=== PATIENT | male | born 1940 | race African-American/Black ===

== ENCOUNTER 2016-05-31 06:43 | Inpatient (IN) | payer MEDICARE ==
[~2016-05-31] VITALS: Ht 167.6 cm; Wt 62.6 kg
[~2016-05-31 06:43] MED LIST: AMLO-512 PO; ASPI-825 PO; CARV12 PO; CLON0.1T PO; DOCU-174 PO; FAMO20TA8 PO; FERR-48 PO; GLIP5TAB11 PO; LEVE500T19 PO; LISI10TA PO; METO-327 PO; NITR1OIN TP; PANT40TA25 PO; PHEN100C9 PO; SIMV-261 PO
[2016-05-31 06:56] LABS: GLUCOSE,POINT OF CARE 141 MG/DL (70-110)
[2016-05-31 07:08] LABS: BASOPHILS # (AUTO) 0.01 K/uL (0.00-0.20); BASOPHILS % (AUTO) 0.1 % (0.0-2.0); EOSINOPHILS # (AUTO) 0.01 K/uL (0.00-0.70); HEMOGLOBIN 16.3 g/dL (13.5-17.5); LYMPHOCYTES % (AUTO) 12.9 % (22.0-44.0); MEAN CORPUSCULAR HEMOGLOBIN 26.4 pg (26.0-34.0); MEAN CORPUSCULAR VOLUME 82 fL (80-100); MONOCYTES # (AUTO) 0.4 K/uL (0.1-1.0); MONOCYTES % (AUTO) 4.9 % (2.0-9.0); NEUTROPHILS # (AUTO) 6.5 K/uL (1.8-7.7); NEUTROPHILS % (AUTO) 82.1 % (40.0-70.0); PLATELET COUNT (AUTO) 199 K/uL (150-450); RED BLOOD CELL COUNT(AUTO) 6.19 MIL/uL (4.50-5.90)
[2016-05-31 07:17] LABS: INR 1.3 (0.9-1.1); PROTHROMBIN TIME 13.8 SEC (9.4-11.6)
[2016-05-31 07:21] LABS: TROPONIN I 0.18 ng/mL (0.00-0.05)
[2016-05-31 07:32] LABS: ANION GAP 22 mmol/L (8-16); CALCIUM, TOTAL 10.1 mg/dL (8.8-10.5); CARBON DIOXIDE 16 mmol/L (22-29); CHLORIDE 94 mmol/L (98-107); CREATININE 2.05 mg/dL (0.60-1.30); GLOMERULAR FILTR. RATE CALC 38 mL/min (>60); POTASSIUM 3.4 mmol/L (3.5-5.1); SODIUM SERUM 132 mmol/L (136-145); UREA NITROGEN, BLOOD 16 mg/dL (7-18)
[2016-05-31] MEDS ORDERED: ACETAMINOPHEN 650 MG RECTAL SUPPOSITORY PR ONE (08:00)
[2016-05-31 08:06] LABS: ALANINE AMINOTRANSFERASE 33 U/L (12-78); ALBUMIN 4.1 g/dL (3.4-5.0); ASPARTATE AMINOTRANSFERASE 67 U/L (15-37); BILIRUBIN,TOTAL 1.1 mg/dL (0.1-1.0); CREATINE KINASE MB 1.5 ng/mL (0-5); CREATINE KINASE, TOTAL 2760 U/L (39-308); TOTAL PROTEIN, SERUM 9.6 g/dL (6.4-8.2)
[2016-05-31 08:18] LABS: APPEARANCE,URINE CLEAR (CLEAR); GLUCOSE, URINE (UA) NEGATIVE (NEGATIVE); KETONES,URINE NEGATIVE (NEGATIVE); LEUKOCYTE ESTERASE ,URINE NEGATIVE (NEGATIVE); OCCULT BLOOD,URINE LARGE (NEGATIVE); PROTEIN,URINE SEE CONFIRM (NEGATIVE)
[2016-05-31 08:19] LABS: ADD UA MICROSCOPIC YES
[2016-05-31 08:23] LABS: SULFOSALICYLIC ACID,URINE 1+ (Negative)
[2016-05-31 08:27] LABS: URINALYSIS COMMENT Few Sperm seen.
[2016-05-31 08:28] LABS: RBC,URINE 26-50 /HPF (0-2); WBC,URINE None Seen /HPF (0-5)
[2016-05-31 08:29] LABS: SQUAMOUS EPITHELIAL CELL,UR Few /LPF (None Seen)
[2016-05-31] MEDS ORDERED: AZITHROMYCIN 500 MG/NS 250 ML IV ONE (08:45)
[2016-05-31] MEDS ORDERED: CefTRIAXone 1 GM/DEXTROSE 50 ML IV ONE (08:45)
[2016-05-31] MEDS ORDERED: ASPIRIN 300 MG RECTAL SUPPOSITORY PR ONE (08:45)
[2016-05-31] MEDS ORDERED: FUROSEMIDE 40 MG/4 ML VIAL IVP ONE (08:45)
[2016-05-31 09:46] LABS: LACTIC ACID 2.9 mmol/L (0.4-2.0)
[2016-05-31] MEDS ORDERED: LevETIRAcetam 1,000 MG in DEXTROSE 5%-WATER 100 ML IV ONE (10:00)
[2016-05-31 10:59] LABS: REFLEX LACTIC ACID? YES YES
[2016-05-31] MEDS ORDERED: VANCOMYCIN HCL 1 GM/D5% WATER 200 ML IV ONE (11:15)
[2016-05-31] MEDS ORDERED: ACETAMINOPHEN 650 MG/ISO-OSM 65 ML IV ONE (11:15)
[2016-05-31] MEDS ORDERED: LORazepam 2 MG/ML VIAL IVP ONE ×2 (11:15→15:00)
[2016-05-31] MEDS ORDERED: 0.9% SODIUM CHLORIDE 10 ML SYRINGE IVP PRN (13:00)
[2016-05-31] MEDS ORDERED: MAGNESIUM HYDROXIDE SUSPENSION 30 ML UDCUP PO PRN (13:45)
[2016-05-31] MEDS ORDERED: ACETAMINOPHEN 325 MG TABLET PO PRN (13:45)
[2016-05-31] MEDS ORDERED: SODIUM CHLORIDE 0.9% 1,000 ML IV ONE (13:45)
[2016-05-31] MEDS ORDERED: ALBUTEROL SULFATE 2.5 MG/0.5 ML NEB SOLUTION NEB PRN (13:45)
[2016-05-31] MEDS ORDERED: SODIUM CHLORIDE 0.9% 100 ML ONE (14:20)
[2016-05-31] MEDS ORDERED: IOVERSOL 350 MG/ML 100 ML VIAL ONE (14:20)
[2016-05-31] MEDS ORDERED: VANCOMYCIN HCL 1 GM/D5% WATER 200 ML IV PRN (14:30)
[2016-05-31] MEDS: PANTOPRAZOLE SODIUM 40 MG/VIAL IVP SCH (14:45)
[2016-05-31] MEDS ORDERED: PIPERACILLIN SODIUM/TAZOBACTAM 2.25 GM in DEXTROSE 5%-WATER 50 ML IV ONE (15:00)
[2016-05-31] MEDS: HEPARIN SODIUM,PORCINE 5,000 UNITS/ML VIAL SQ SCH (16:48)
[2016-05-31] MEDS: IPRATROPIUM BROMIDE 0.5 MG/2.5 ML NEB SOLUTION NEB SCH ×2 (18:23→22:47)
[2016-05-31] MEDS: ALBUTEROL SULFATE 2.5 MG/0.5 ML NEB SOLUTION NEB SCH ×2 (18:23→22:47)
[2016-05-31] MEDS ORDERED: LORazepam 2 MG/ML VIAL IVP PRN (21:00)
[2016-05-31 21:26] VITALS: BP 131/93
[2016-05-31] MEDS: DOCUSATE SODIUM 100 MG CAPSULE PO SCH (21:27)
[2016-05-31] MEDS: LevETIRAcetam 500 MG in DEXTROSE 5%-WATER 100 ML IV SCH (22:33)
[2016-05-31 23:53] VITALS: BP 129/90
[2016-06-01] MEDS: PIPERACILLIN SODIUM/TAZOBACTAM 2.25 GM in DEXTROSE 5%-WATER 50 ML IV SCH ×5 (00:30→23:27)
[2016-06-01] MEDS: HEPARIN SODIUM,PORCINE 5,000 UNITS/ML VIAL SQ SCH ×4 (00:30→23:28)
[2016-06-01 04:16] VITALS: BP 106/73
[2016-06-01 07:20] LABS: BASOPHILS % (AUTO) 0.1 % (0.0-2.0); EOSINOPHILS % (AUTO) 0.1 % (1.0-6.0); HEMOGLOBIN 16.9 g/dL (13.5-17.5); LYMPHOCYTES # (AUTO) 0.8 K/uL (1.0-4.8); LYMPHOCYTES % (AUTO) 12.2 % (22.0-44.0); MEAN CORPUSCULAR HEMOGLOBIN 26.4 pg (26.0-34.0); MEAN CORPUSCULAR HGB CONC 31.9 G/dL (31.0-37.0); MEAN CORPUSCULAR VOLUME 83 fL (80-100); MONOCYTES # (AUTO) 0.9 K/uL (0.1-1.0); MONOCYTES % (AUTO) 13.3 % (2.0-9.0); NEUTROPHILS # (AUTO) 4.9 K/uL (1.8-7.7); NEUTROPHILS % (AUTO) 74.3 % (40.0-70.0); PLATELET COUNT (AUTO) 157 K/uL (150-450); RED BLOOD CELL COUNT(AUTO) 6.39 MIL/uL (4.50-5.90); RED CELL DISTRIBUTION WIDTH 15.2 % (11.5-14.5); WHITE BLOOD COUNT (AUTO) 6.6 K/uL (4.5-11.0)
[2016-06-01 07:38] LABS: ALBUMIN 3.1 g/dL (3.4-5.0); BILIRUBIN,TOTAL 0.9 mg/dL (0.1-1.0); CALCIUM, TOTAL 8.9 mg/dL (8.8-10.5); CREATININE 2.2 mg/dL (0.60-1.30); TOTAL PROTEIN, SERUM 7.8 g/dL (6.4-8.2)
[2016-06-01 07:40] VITALS: BP 136/78
[2016-06-01 07:42] LABS: POTASSIUM 2.8 mmol/L (3.5-5.1)
[2016-06-01] MEDS: PANTOPRAZOLE SODIUM 40 MG/VIAL IVP SCH (08:18)
[2016-06-01] MEDS: DOCUSATE SODIUM 100 MG CAPSULE PO SCH ×2 (08:18→21:00)
[2016-06-01] MEDS: SIMVASTATIN 20 MG TABLET PO SCH (08:18)
[2016-06-01] MEDS: ASPIRIN 81 MG CHEWABLE TABLET PO SCH (08:18)
[2016-06-01] MEDS ORDERED: VANCOMYCIN HCL 500 MG in DEXTROSE 5%-WATER 100 ML IV ONE (09:00)
[2016-06-01] MEDS ORDERED: POTASSIUM CHLORIDE 20 MEQ ER TABLET PO ONE (10:30)
[2016-06-01 11:15] VITALS: BP 111/74
[2016-06-01] MEDS: LevETIRAcetam 500 MG in DEXTROSE 5%-WATER 100 ML IV SCH ×2 (11:45→22:56)
[2016-06-01 15:44] VITALS: BP 127/84
[2016-06-01 19:54] VITALS: BP 102/78
[2016-06-02] VITALS (7 sets, daily range): BP systolic 116–142; BP diastolic 59–91
[2016-06-02] MEDS: PIPERACILLIN SODIUM/TAZOBACTAM 2.25 GM in DEXTROSE 5%-WATER 50 ML IV SCH ×2 (06:28→12:19)
[2016-06-02 07:01] LABS: BASOPHILS % (AUTO) 0.6 % (0.0-2.0); EOSINOPHILS % (AUTO) 0.9 % (1.0-6.0); HEMATOCRIT 51.7 % (41-53); HEMOGLOBIN 16.1 g/dL (13.5-17.5); LYMPHOCYTES # (AUTO) 1.4 K/uL (1.0-4.8); LYMPHOCYTES % (AUTO) 27.8 % (22.0-44.0); MEAN CORPUSCULAR HEMOGLOBIN 26.2 pg (26.0-34.0); MEAN CORPUSCULAR HGB CONC 31.2 G/dL (31.0-37.0); MEAN CORPUSCULAR VOLUME 84 fL (80-100); MONOCYTES # (AUTO) 0.9 K/uL (0.1-1.0); MONOCYTES % (AUTO) 17.3 % (2.0-9.0); NEUTROPHILS # (AUTO) 2.7 K/uL (1.8-7.7); NEUTROPHILS % (AUTO) 53.4 % (40.0-70.0); PLATELET COUNT (AUTO) 147 K/uL (150-450); RED BLOOD CELL COUNT(AUTO) 6.17 MIL/uL (4.50-5.90); RED CELL DISTRIBUTION WIDTH 15.5 % (11.5-14.5); WHITE BLOOD COUNT (AUTO) 5.1 K/uL (4.5-11.0)
[2016-06-02 07:14] LABS: CALCIUM, TOTAL 8.8 mg/dL (8.8-10.5); CREATININE 1.94 mg/dL (0.60-1.30); POTASSIUM 3.4 mmol/L (3.5-5.1)
[2016-06-02] MEDS ORDERED: VANCOMYCIN HCL 500 MG in DEXTROSE 5%-WATER 100 ML IV SCH (08:00)
[2016-06-02] MEDS: HEPARIN SODIUM,PORCINE 5,000 UNITS/ML VIAL SQ SCH ×2 (09:39→16:17)
[2016-06-02] MEDS: DOCUSATE SODIUM 100 MG CAPSULE PO SCH ×2 (09:41→20:35)
[2016-06-02] MEDS: PANTOPRAZOLE SODIUM 40 MG/VIAL IVP SCH (09:41)
[2016-06-02] MEDS: SIMVASTATIN 20 MG TABLET PO SCH (09:41)
[2016-06-02] MEDS: ASPIRIN 81 MG CHEWABLE TABLET PO SCH (09:42)
[2016-06-02] MEDS: LevETIRAcetam 500 MG in DEXTROSE 5%-WATER 100 ML IV SCH (11:25)
[2016-06-02] MEDS ORDERED: POTASSIUM CHLORIDE 20 MEQ ER TABLET PO ONE (12:30)
[2016-06-02] MEDS ORDERED: VANCOMYCIN HCL 500 MG in DEXTROSE 5%-WATER 100 ML IV ONE (13:00)
[2016-06-02] MEDS: CefTRIAXone 1 GM/DEXTROSE 50 ML IV SCH (17:49)
[2016-06-02] MEDS: LevETIRAcetam 500 MG TABLET PO SCH (20:35)
[2016-06-03] VITALS: BP 126/90
[2016-06-03] MEDS: HEPARIN SODIUM,PORCINE 5,000 UNITS/ML VIAL SQ SCH ×4 (00:10→23:51)
[2016-06-03 04:17] VITALS: BP 129/85
[2016-06-03 07:29] VITALS: BP 143/70
[2016-06-03] MEDS ORDERED: VANCOMYCIN HCL 1 GM/D5% WATER 200 ML IV SCH (08:00)
[2016-06-03] MEDS: ASPIRIN 81 MG CHEWABLE TABLET PO SCH (08:37)
[2016-06-03] MEDS: DOCUSATE SODIUM 100 MG CAPSULE PO SCH ×2 (08:37→20:15)
[2016-06-03] MEDS: LevETIRAcetam 500 MG TABLET PO SCH ×2 (08:37→20:15)
[2016-06-03] MEDS: SIMVASTATIN 20 MG TABLET PO SCH (08:39)
[2016-06-03 11:20] VITALS: BP 142/88
[2016-06-03 15:00] VITALS: BP 136/92
[2016-06-03] MEDS ORDERED: POTASSIUM CHLORIDE 20 MEQ ER TABLET PO ONE (16:15)
[2016-06-03] MEDS ORDERED: VANCOMYCIN HCL 1 GM/D5% WATER 200 ML IV PRN (16:15)
[2016-06-03] MEDS: CefTRIAXone 1 GM/DEXTROSE 50 ML IV SCH (16:49)
[2016-06-03] MEDS ORDERED: VANCOMYCIN HCL 1 GM/D5% WATER 200 ML IV ONE (17:00)
[2016-06-03 19:51] VITALS: BP 134/91
[2016-06-04] VITALS (7 sets, daily range): BP systolic 131–158; BP diastolic 74–98
[2016-06-04 06:16] LABS: BASOPHILS # (AUTO) 0.07 K/uL (0.00-0.20); EOSINOPHILS # (AUTO) 0.42 K/uL (0.00-0.70); EOSINOPHILS % (AUTO) 6.52 % (1.0-6.0); HEMOGLOBIN 17.4 g/dL (13.5-17.5); LYMPHOCYTES # (AUTO) 2.6 K/uL (1.0-4.8); LYMPHOCYTES % (AUTO) 40.6 % (22.0-44.0); MEAN CORPUSCULAR HEMOGLOBIN 26.4 pg (26.0-34.0); MEAN CORPUSCULAR HGB CONC 32.8 G/dL (31.0-37.0); MEAN CORPUSCULAR VOLUME 80 fL (80-100); MONOCYTES % (AUTO) 15.8 % (2.0-9.0); NEUTROPHILS # (AUTO) 2.3 K/uL (1.8-7.7); NEUTROPHILS % (AUTO) 36.1 % (40.0-70.0); PLATELET COUNT (AUTO) 150 K/uL (150-450); RED BLOOD CELL COUNT(AUTO) 6.59 MIL/uL (4.50-5.90); RED CELL DISTRIBUTION WIDTH 17.5 % (11.5-14.5); WHITE BLOOD COUNT (AUTO) 6.5 K/uL (4.5-11.0)
[2016-06-04] MEDS: HEPARIN SODIUM,PORCINE 5,000 UNITS/ML VIAL SQ SCH ×2 (08:19→17:40)
[2016-06-04] MEDS: SIMVASTATIN 20 MG TABLET PO SCH (08:19)
[2016-06-04] MEDS: ASPIRIN 81 MG CHEWABLE TABLET PO SCH (08:19)
[2016-06-04] MEDS: LevETIRAcetam 500 MG TABLET PO SCH ×2 (08:19→19:59)
[2016-06-04] MEDS: DOCUSATE SODIUM 100 MG CAPSULE PO SCH ×2 (08:19→19:59)
[2016-06-04 08:41] LABS: CALCIUM, TOTAL 9.1 mg/dL (8.8-10.5); CREATININE 1.51 mg/dL (0.60-1.30); POTASSIUM 3.5 mmol/L (3.5-5.1)
[2016-06-04] MEDS ORDERED: VANCOMYCIN HCL 1 GM/D5% WATER 200 ML IV ONE (10:00)
[2016-06-04] MEDS: VANCOMYCIN HCL 750 MG in DEXTROSE 5%-WATER 150 ML IV SCH (17:37)
[2016-06-04] MEDS: CefTRIAXone 1 GM/DEXTROSE 50 ML IV SCH (17:37)
[2016-06-05 04:00] VITALS: BP 154/83
[2016-06-05] MEDS: VANCOMYCIN HCL 750 MG in DEXTROSE 5%-WATER 150 ML IV SCH (05:31)
[2016-06-05 06:18] LABS: BASOPHILS % (AUTO) 0.6 % (0.0-2.0); EOSINOPHILS % (AUTO) 7.1 % (1.0-6.0); HEMATOCRIT 52.8 % (41-53); HEMOGLOBIN 16.4 g/dL (13.5-17.5); LYMPHOCYTES # (AUTO) 2.7 K/uL (1.0-4.8); LYMPHOCYTES % (AUTO) 40.5 % (22.0-44.0); MEAN CORPUSCULAR VOLUME 84 fL (80-100); MONOCYTES # (AUTO) 0.9 K/uL (0.1-1.0); NEUTROPHILS # (AUTO) 2.5 K/uL (1.8-7.7); NEUTROPHILS % (AUTO) 38.8 % (40.0-70.0); PLATELET COUNT (AUTO) 150 K/uL (150-450); RED CELL DISTRIBUTION WIDTH 15.3 % (11.5-14.5); WHITE BLOOD COUNT (AUTO) 6.6 K/uL (4.5-11.0)
[2016-06-05 06:38] LABS: ANION GAP 8 mmol/L (8-16); CALCIUM, TOTAL 9.3 mg/dL (8.8-10.5); CARBON DIOXIDE 24 mmol/L (22-29); CHLORIDE 101 mmol/L (98-107); CREATININE 1.34 mg/dL (0.60-1.30); GLOMERULAR FILTR. RATE CALC > 60 mL/min (>60); POTASSIUM 3.7 mmol/L (3.5-5.1); SODIUM SERUM 133 mmol/L (136-145); UREA NITROGEN, BLOOD 12 mg/dL (7-18)
[2016-06-05 07:39] VITALS: BP 153/94
[2016-06-05] MEDS: DOCUSATE SODIUM 100 MG CAPSULE PO SCH (08:29)
[2016-06-05] MEDS: HEPARIN SODIUM,PORCINE 5,000 UNITS/ML VIAL SQ SCH ×2 (08:29)
[2016-06-05] MEDS: LevETIRAcetam 500 MG TABLET PO SCH (08:29)
[2016-06-05] MEDS: SIMVASTATIN 20 MG TABLET PO SCH (08:29)
[2016-06-05] MEDS: ASPIRIN 81 MG CHEWABLE TABLET PO SCH (08:29)
[2016-06-05 12:00] VITALS: BP 135/95
== END 2016-06-05 15:00 | disposition left against medical advice (07) | DRG 872 ==
LOC: EMS 06:45 → 5N 17:49 → 6N 06-02 16:35
PROVIDERS: ADMIT Internal Medicine; ATTEND Internal Medicine
DX: A41.1 Sepsis due to other specified staphylococcus (principal); N17.9 Acute kidney failure, unspecified; M62.82 Rhabdomyolysis; I13.0 Hypertensive heart and chronic kidney disease with heart failure and stage 1 through stage 4 chronic kidney disease, or unspecified chronic kidney disease; I48.92 Unspecified atrial flutter; R64 Cachexia; R65.20 Severe sepsis without septic shock; E78.00 Pure hypercholesterolemia, unspecified; G40.909 Epilepsy, unspecified, not intractable, without status epilepticus; I25.10 Atherosclerotic heart disease of native coronary artery without angina pectoris; I35.0 Nonrheumatic aortic (valve) stenosis; I50.9 Heart failure, unspecified; I48.91 Unspecified atrial fibrillation; Z60.2 Problems related to living alone; E11.22 Type 2 diabetes mellitus with diabetic chronic kidney disease; N18.3 Chronic kidney disease, stage 3 (moderate); Z78.1 Physical restraint status; Z59.0 Homelessness; Z91.14 Patient's other noncompliance with medication regimen; Z95.1 Presence of aortocoronary bypass graft; Z95.2 Presence of prosthetic heart valve; Z79.899 Other long term (current) drug therapy; Z79.82 Long term (current) use of aspirin; Z79.84 Long term (current) use of oral hypoglycemic drugs; Z86.2 Personal history of diseases of the blood and blood-forming organs and certain disorders involving the immune mechanism; I25.2 Old myocardial infarction; Z87.01 Personal history of pneumonia (recurrent); Z86.79 Personal history of other diseases of the circulatory system; Z68.22 Body mass index [BMI] 22.0-22.9, adult; Z87.891 Personal history of nicotine dependence
CPT/HCPCS: 51702; 70496; 70551; 82962; 83605; 87040; 93005; 93306; 94640; 96361; 96365; 96366; 96367; 96368; 96375; 97161; 99291; C9113; G0480; G0482; J0131; J0696; J0712; J1644; J1940; J2060; J2543; J3370; J7050; J7060

== ENCOUNTER 2017-04-06 12:25 | Inpatient (IN) | payer MEDICARE ==
[~2017-04-06] VITALS: Ht 165.1 cm; Wt 61.8 kg
[~2017-04-06 12:25] MED LIST changes: -DOCU-174 PO; +DOCU100C33 PO; -METO-327 PO; +METO-416 PO
[2017-04-06] MEDS ORDERED: SODIUM CHLORIDE 0.9% 1,000 ML IV ONE (12:45)
[2017-04-06 13:18] LABS: BASOPHILS % (AUTO) 1.2 % (0.0-2.0); EOSINOPHILS % (AUTO) 3.5 % (1.0-6.0); HEMOGLOBIN 15.4 g/dL (13.5-17.5); LYMPHOCYTES # (AUTO) 1.1 K/uL (1.0-4.8); LYMPHOCYTES % (AUTO) 13.6 % (22.0-44.0); MEAN CORPUSCULAR HGB CONC 32.1 G/dL (31.0-37.0); MEAN CORPUSCULAR VOLUME 84 fL (80-100); MONOCYTES # (AUTO) 0.4 K/uL (0.1-1.0); MONOCYTES % (AUTO) 5.3 % (2.0-9.0); NEUTROPHILS % (AUTO) 76.4 % (40.0-70.0); PLATELET COUNT (AUTO) 209 K/uL (150-450); RED BLOOD CELL COUNT(AUTO) 5.69 MIL/uL (4.50-5.90); RED CELL DISTRIBUTION WIDTH 14.5 % (11.5-14.5)
[2017-04-06 13:28] LABS: INR 1.1 (0.9-1.1); PROTHROMBIN TIME 11.3 SEC (9.4-11.6)
[2017-04-06 13:36] LABS: TROPONIN I 0.05 ng/mL (0.00-0.05)
[2017-04-06 13:40] LABS: ALANINE AMINOTRANSFERASE 17 U/L (12-78); ALBUMIN 3.5 g/dL (3.4-5.0); ALKALINE PHOSPHATASE 128 U/L (46-116); ANION GAP 20 mmol/L (8-16); ASPARTATE AMINOTRANSFERASE 21 U/L (15-37); BILIRUBIN,TOTAL 0.4 mg/dL (0.1-1.0); CALCIUM, TOTAL 9.4 mg/dL (8.8-10.5); CARBON DIOXIDE 18 mmol/L (22-29); CHLORIDE 100 mmol/L (98-107); CREATININE 2.01 mg/dL (0.60-1.30); GLOMERULAR FILTR. RATE CALC 39 mL/min (>60); GLUCOSE,RANDOM 125 mg/dL (70-110); SODIUM SERUM 138 mmol/L (136-145); TOTAL PROTEIN, SERUM 8.1 g/dL (6.4-8.2); UREA NITROGEN, BLOOD 18 mg/dL (7-18)
[2017-04-06 13:47] LABS: POTASSIUM 2.8 mmol/L (3.5-5.1)
[2017-04-06] MEDS ORDERED: POTASSIUM CHL 10 MEQ/WATER 50 ML IV ONE (14:15)
[2017-04-06] MEDS ORDERED: LABETALOL HCL 5 MG/ML 20 ML VIAL IVP ONE ×2 (14:15→16:45)
[2017-04-06 14:43] LABS: B-TYPE NATRIURETIC PEPTIDE 350 pg/mL (0-100)
[2017-04-06] MEDS ORDERED: LACTULOSE 20 GM/30 ML SOLUTION UDCUP PO ONE (14:45)
[2017-04-06] MEDS ORDERED: PHENYTOIN SODIUM 1,000 MG in SODIUM CHLORIDE 0.9% 150 ML IV ONE (14:45)
[2017-04-06 14:52] LABS: PHENYTOIN (DILANTIN) < 0.5 mcg/mL (10.0-20.0)
[2017-04-06] MEDS ORDERED: LORazepam 2 MG/ML VIAL IVP ONE (15:00)
[2017-04-06] MEDS ORDERED: ALBUTEROL SULFATE 2.5 MG/0.5 ML NEB SOLUTION NEB PRN ×2 (15:30→21:15)
[2017-04-06] MEDS ORDERED: ACETAMINOPHEN 325 MG TABLET PO PRN (15:30)
[2017-04-06] MEDS ORDERED: BISACODYL 10 MG RECTAL RECTAL SUPPOSITORY PR PRN (15:30)
[2017-04-06] MEDS ORDERED: ONDANSETRON HCL 4 MG/2 ML VIAL IVP PRN (15:30)
[2017-04-06] MEDS ORDERED: DEXTROSE 5%-0.45% SODIUM CHL 1,000 ML IV ONE (15:45)
[2017-04-06] MEDS ORDERED: DEXTROSE 50%-WATER 25 GM/50 ML SYRINGE IVP PRN (15:45)
[2017-04-06 16:57] LABS: APPEARANCE,URINE TURBID (CLEAR); BILIRUBIN,URINE NEGATIVE (NEGATIVE); GLUCOSE, URINE (UA) NEGATIVE (NEGATIVE); KETONES,URINE NEGATIVE (NEGATIVE); LEUKOCYTE ESTERASE ,URINE NEGATIVE (NEGATIVE); NITRATE,URINE NEGATIVE (NEGATIVE); OCCULT BLOOD,URINE MODERATE (NEGATIVE); PROTEIN,URINE SEE CONFIRM (NEGATIVE); UROBILINOGEN,URINE 0.2 mg/dL (<=1.0)
[2017-04-06 17:01] LABS: AMPHET/METH SCREEN,URINE NEGATIVE (NEGATIVE); BARBITURATE SCREEN, URINE NEGATIVE (NEGATIVE); BENZODIAZEPINES SCREEN,URINE POSITIVE (NEGATIVE); CANNABINOID SCREEN,URINE POSITIVE (NEGATIVE); COCAINE SCREEN,URINE NEGATIVE (NEGATIVE); METHADONE SCREEN, URINE NEGATIVE (NEGATIVE); OPIATE SCREEN,URINE NEGATIVE (NEGATIVE)
[2017-04-06 17:05] LABS: PHENCYCLIDINE SCREEN,URINE NEGATIVE (NEGATIVE); SULFOSALICYLIC ACID,URINE 1+ (Negative)
[2017-04-06 17:08] LABS: BACTERIA,URINE None Seen /HPF (None Seen); SQUAMOUS EPITHELIAL CELL,UR Few /LPF (None Seen); WBC,URINE 0-2 /HPF (0-5)
[2017-04-06] MEDS: LevETIRAcetam 500 MG in DEXTROSE 5%-WATER 100 ML IV SCH (18:16)
[2017-04-06] MEDS: CloNIDine HCL 0.1 MG TABLET PO PRN (18:22)
[2017-04-06 20:00] VITALS: BP 162/98
[2017-04-06] MEDS ORDERED: CARVEDILOL 12.5 MG TABLET PO SCH (21:00)
[2017-04-06] MEDS ORDERED: SODIUM CHLORIDE 0.9% 250 ML IV ONE (21:25)
[2017-04-06] MEDS: POTASSIUM CHL 10 MEQ/WATER 50 ML IV SCH ×3 (21:30→23:28)
[2017-04-06] MEDS: CloNIDine HCL 0.1 MG TABLET PO SCH (21:31)
[2017-04-06] MEDS: HEPARIN SODIUM,PORCINE 5,000 UNITS/ML VIAL SQ SCH (21:31)
[2017-04-06] MEDS: DOCUSATE SODIUM 100 MG CAPSULE PO SCH (21:32)
[2017-04-06 22:30] VITALS: BP 163/92
[2017-04-06] MEDS: INSULIN ASPART 100 UNITS/ML SQ PRN (22:32)
[2017-04-06 23:30] VITALS: BP 120/80
[2017-04-07] VITALS: BP 120/78
[2017-04-07] MEDS: POTASSIUM CHL 10 MEQ/WATER 50 ML IV SCH (00:44)
[2017-04-07 04:00] VITALS: BP 154/68
[2017-04-07] MEDS: LevETIRAcetam 500 MG in DEXTROSE 5%-WATER 100 ML IV SCH ×2 (04:04→16:55)
[2017-04-07 05:17] LABS: GLUCOSE,POINT OF CARE 197 MG/DL (70-110)
[2017-04-07 05:48] LABS: CALCIUM, TOTAL 9.2 mg/dL (8.8-10.5); CREATININE 1.96 mg/dL (0.60-1.30); POTASSIUM 3.6 mmol/L (3.5-5.1)
[2017-04-07] MEDS ORDERED: PNEUMOCOCCAL VACCINE POLYVALENT 0.5 ML VIAL [PPSV23] IM ONE (06:00)
[2017-04-07 06:08] LABS: EOSINOPHILS % (AUTO) 0 % (1.0-6.0); HEMATOCRIT 47.6 % (41-53); HEMOGLOBIN 15.5 g/dL (13.5-17.5); LYMPHOCYTES # (AUTO) 1.4 K/uL (1.0-4.8); LYMPHOCYTES % (AUTO) 8.2 % (22.0-44.0); MEAN CORPUSCULAR HEMOGLOBIN 27.1 pg (26.0-34.0); MEAN CORPUSCULAR HGB CONC 32.6 G/dL (31.0-37.0); MEAN CORPUSCULAR VOLUME 83 fL (80-100); MONOCYTES # (AUTO) 0.6 K/uL (0.1-1.0); MONOCYTES % (AUTO) 3.6 % (2.0-9.0); NEUTROPHILS # (AUTO) 14.9 K/uL (1.8-7.7); PLATELET COUNT (AUTO) 208 K/uL (150-450); RED BLOOD CELL COUNT(AUTO) 5.73 MIL/uL (4.50-5.90); RED CELL DISTRIBUTION WIDTH 14.9 % (11.5-14.5)
[2017-04-07 06:28] LABS: NEUTROPHILS % (AUTO) 88.2 % (40.0-70.0)
[2017-04-07 08:00] VITALS: BP 169/75
[2017-04-07] MEDS: PANTOPRAZOLE SODIUM 40 MG/VIAL IVP SCH (09:03)
[2017-04-07] MEDS: METOPROLOL SUCCINATE 100 MG ER TABLET PO SCH (09:03)
[2017-04-07] MEDS: AmLODIPine BESYLATE 10 MG TABLET PO SCH (09:04)
[2017-04-07] MEDS: CloNIDine HCL 0.1 MG TABLET PO SCH ×3 (09:04→21:42)
[2017-04-07] MEDS: LISINOPRIL 10 MG TABLET PO SCH (09:04)
[2017-04-07] MEDS: HEPARIN SODIUM,PORCINE 5,000 UNITS/ML VIAL SQ SCH ×2 (09:04→21:42)
[2017-04-07] MEDS: DOCUSATE SODIUM 100 MG CAPSULE PO SCH ×2 (09:05→21:42)
[2017-04-07 09:12] LABS: GLUCOSE,POINT OF CARE 127 MG/DL (70-110)
[2017-04-07] MEDS: LORazepam 2 MG/ML VIAL IVP PRN (11:07)
[2017-04-07 12:00] VITALS: BP 145/80
[2017-04-07] MEDS: DEXTROSE 5%-0.45% SODIUM CHL 1,000 ML IV SCH (13:11)
[2017-04-07 16:00] VITALS: BP 148/92
[2017-04-07] MEDS: INSULIN ASPART 100 UNITS/ML SQ PRN (17:33)
[2017-04-07 19:39] VITALS: BP 149/79
[2017-04-07 23:13] LABS: GLUCOSE,POINT OF CARE 162 MG/DL (70-110)
[2017-04-08] VITALS (9 sets, daily range): BP systolic 147–175; BP diastolic 59–115
[2017-04-08] MEDS: DEXTROSE 5%-0.45% SODIUM CHL 1,000 ML IV SCH ×2 (00:54→16:54)
[2017-04-08 01:17] LABS: GLUCOSE,POINT OF CARE 119 MG/DL (70-110)
[2017-04-08] MEDS: LevETIRAcetam 500 MG in DEXTROSE 5%-WATER 100 ML IV SCH ×2 (03:48→15:03)
[2017-04-08 06:59] LABS: EOSINOPHILS % (AUTO) 0.6 % (1.0-6.0); HEMATOCRIT 47.1 % (41-53); HEMOGLOBIN 15.4 g/dL (13.5-17.5); LYMPHOCYTES % (AUTO) 13.4 % (22.0-44.0); MEAN CORPUSCULAR HEMOGLOBIN 27.2 pg (26.0-34.0); MEAN CORPUSCULAR HGB CONC 32.7 G/dL (31.0-37.0); MEAN CORPUSCULAR VOLUME 83 fL (80-100); MONOCYTES # (AUTO) 1.6 K/uL (0.1-1.0); NEUTROPHILS # (AUTO) 10.9 K/uL (1.8-7.7); PLATELET COUNT (AUTO) 177 K/uL (150-450); RED BLOOD CELL COUNT(AUTO) 5.66 MIL/uL (4.50-5.90); RED CELL DISTRIBUTION WIDTH 14.7 % (11.5-14.5)
[2017-04-08 07:08] LABS: CALCIUM, TOTAL 9.3 mg/dL (8.8-10.5); CREATININE 1.62 mg/dL (0.60-1.30); POTASSIUM 3.8 mmol/L (3.5-5.1)
[2017-04-08] MEDS: CloNIDine HCL 0.1 MG TABLET PO SCH ×3 (09:27→21:08)
[2017-04-08] MEDS: PANTOPRAZOLE SODIUM 40 MG/VIAL IVP SCH (09:27)
[2017-04-08] MEDS: HEPARIN SODIUM,PORCINE 5,000 UNITS/ML VIAL SQ SCH ×2 (09:28→21:08)
[2017-04-08] MEDS: METOPROLOL SUCCINATE 100 MG ER TABLET PO SCH (09:28)
[2017-04-08] MEDS: LISINOPRIL 10 MG TABLET PO SCH (09:28)
[2017-04-08] MEDS: DOCUSATE SODIUM 100 MG CAPSULE PO SCH ×2 (09:28→21:08)
[2017-04-08] MEDS: AmLODIPine BESYLATE 10 MG TABLET PO SCH (09:28)
[2017-04-08 14:57] LABS: GLUCOMETER DEV NAME(LOC) 5N 2R; GLUCOSE,POINT OF CARE 91 MG/DL (70-110)
[2017-04-08 14:57] LABS: GLUCOMETER DEV NAME(LOC) 5N 2R; GLUCOSE,POINT OF CARE 126 MG/DL (70-110)
[2017-04-08 14:57] LABS: GLUCOMETER DEV NAME(LOC) 5N 2R; GLUCOSE,POINT OF CARE 118 MG/DL (70-110)
[2017-04-08] MEDS: HydrALAZINE HCL 20 MG/ML VIAL IVP PRN (17:14)
[2017-04-08] MEDS: INSULIN ASPART 100 UNITS/ML SQ PRN ×2 (18:12→18:18)
[2017-04-09] VITALS (9 sets, daily range): BP systolic 147–177; BP diastolic 104–116
[2017-04-09] MEDS: LevETIRAcetam 500 MG in DEXTROSE 5%-WATER 100 ML IV SCH ×2 (05:50→15:38)
[2017-04-09] MEDS: DEXTROSE 5%-0.45% SODIUM CHL 1,000 ML IV SCH ×2 (05:52→21:13)
[2017-04-09] MEDS: HydrALAZINE HCL 20 MG/ML VIAL IVP PRN ×4 (07:28→23:40)
[2017-04-09] MEDS: PANTOPRAZOLE SODIUM 40 MG/VIAL IVP SCH (08:46)
[2017-04-09] MEDS: METOPROLOL SUCCINATE 100 MG ER TABLET PO SCH (08:47)
[2017-04-09] MEDS: LISINOPRIL 10 MG TABLET PO SCH (08:47)
[2017-04-09] MEDS: DOCUSATE SODIUM 100 MG CAPSULE PO SCH ×2 (08:47→20:44)
[2017-04-09] MEDS: CloNIDine HCL 0.1 MG TABLET PO SCH ×3 (08:47→20:44)
[2017-04-09] MEDS: AmLODIPine BESYLATE 10 MG TABLET PO SCH (08:47)
[2017-04-09] MEDS: HEPARIN SODIUM,PORCINE 5,000 UNITS/ML VIAL SQ SCH ×2 (09:00→20:44)
[2017-04-09] MEDS: INSULIN ASPART 100 UNITS/ML SQ PRN (11:34)
[2017-04-09] MEDS: LORazepam 2 MG/ML VIAL IVP PRN (23:39)
[2017-04-10] MEDS: LevETIRAcetam 500 MG in DEXTROSE 5%-WATER 100 ML IV SCH ×2 (04:10→17:11)
[2017-04-10 04:22] VITALS: BP 129/83
[2017-04-10 05:28] LABS: GLUCOMETER DEV NAME(LOC) 5N 1M; GLUCOSE,POINT OF CARE 150 MG/DL (70-110)
[2017-04-10] MEDS: LORazepam 2 MG/ML VIAL IVP PRN (06:41)
[2017-04-10 07:06] VITALS: BP 111/76
[2017-04-10 07:27] LABS: GLUCOMETER DEV NAME(LOC) 5N 2R; GLUCOSE,POINT OF CARE 148 MG/DL (70-110)
[2017-04-10 07:27] LABS: GLUCOMETER DEV NAME(LOC) 5N 2R; GLUCOSE,POINT OF CARE 123 MG/DL (70-110)
[2017-04-10 07:27] LABS: GLUCOMETER DEV NAME(LOC) 5N 2R; GLUCOSE,POINT OF CARE 167 MG/DL (70-110)
[2017-04-10 07:27] LABS: GLUCOMETER DEV NAME(LOC) 5N 2R; GLUCOSE,POINT OF CARE 151 MG/DL (70-110)
[2017-04-10 07:27] LABS: GLUCOMETER DEV NAME(LOC) 5N 2R; GLUCOSE,POINT OF CARE 162 MG/DL (70-110)
[2017-04-10] MEDS: DOCUSATE SODIUM 100 MG CAPSULE PO SCH ×2 (09:00→21:00)
[2017-04-10] MEDS: METOPROLOL SUCCINATE 100 MG ER TABLET PO SCH (09:00)
[2017-04-10] MEDS: HEPARIN SODIUM,PORCINE 5,000 UNITS/ML VIAL SQ SCH ×2 (09:00→21:00)
[2017-04-10] MEDS: LISINOPRIL 10 MG TABLET PO SCH (09:00)
[2017-04-10] MEDS: CloNIDine HCL 0.1 MG TABLET PO SCH ×3 (09:00→21:00)
[2017-04-10] MEDS: AmLODIPine BESYLATE 10 MG TABLET PO SCH (09:00)
[2017-04-10 11:34] VITALS: BP 134/79
[2017-04-10] MEDS: PANTOPRAZOLE SODIUM 40 MG/VIAL IVP SCH (12:44)
[2017-04-10] MEDS: DEXTROSE 5%-0.45% SODIUM CHL 1,000 ML IV SCH (12:44)
[2017-04-10 15:38] VITALS: BP 139/90
[2017-04-10 20:17] LABS: GLUCOMETER DEV NAME(LOC) 5N 1M; GLUCOSE,POINT OF CARE 148 MG/DL (70-110)
[2017-04-10 20:17] LABS: GLUCOMETER DEV NAME(LOC) 5N 1M; GLUCOSE,POINT OF CARE 144 MG/DL (70-110)
[2017-04-10 20:19] VITALS: BP 158/100
[2017-04-10 21:47] LABS: GLUCOMETER DEV NAME(LOC) 5N 1M; GLUCOSE,POINT OF CARE 131 MG/DL (70-110)
[2017-04-10 21:53] LABS: GLUCOMETER DEV NAME(LOC) 5N 2R; GLUCOSE,POINT OF CARE 111 MG/DL (70-110)
[2017-04-11 00:40] VITALS: BP 167/106
[2017-04-11] MEDS: HydrALAZINE HCL 20 MG/ML VIAL IVP PRN ×3 (03:57→18:01)
[2017-04-11] MEDS: LevETIRAcetam 500 MG in DEXTROSE 5%-WATER 100 ML IV SCH ×2 (04:04→17:02)
[2017-04-11] MEDS: DEXTROSE 5%-0.45% SODIUM CHL 1,000 ML IV SCH ×2 (04:16→17:04)
[2017-04-11] MEDS: LORazepam 2 MG/ML VIAL IVP PRN (05:42)
[2017-04-11 06:30] LABS: BASOPHILS % (AUTO) 0.7 % (0.0-2.0); EOSINOPHILS # (AUTO) 0.05 K/uL (0.00-0.70); EOSINOPHILS % (AUTO) 0.32 % (1.0-6.0); HEMATOCRIT 49.3 % (41-53); HEMOGLOBIN 15.3 g/dL (13.5-17.5); LYMPHOCYTES # (AUTO) 1.3 K/uL (1.0-4.8); LYMPHOCYTES % (AUTO) 8.7 % (22.0-44.0); MEAN CORPUSCULAR HEMOGLOBIN 26.3 pg (26.0-34.0); MEAN CORPUSCULAR VOLUME 85 fL (80-100); MONOCYTES # (AUTO) 1.5 K/uL (0.1-1.0); MONOCYTES % (AUTO) 10.3 % (2.0-9.0); NEUTROPHILS # (AUTO) 11.7 K/uL (1.8-7.7); PLATELET COUNT (AUTO) 219 K/uL (150-450); RED BLOOD CELL COUNT(AUTO) 5.81 MIL/uL (4.50-5.90); RED CELL DISTRIBUTION WIDTH 15.1 % (11.5-14.5)
[2017-04-11 06:55] LABS: CALCIUM, TOTAL 9.2 mg/dL (8.8-10.5); CREATININE 2.01 mg/dL (0.60-1.30); POTASSIUM 3.1 mmol/L (3.5-5.1)
[2017-04-11 07:02] VITALS: BP 164/108
[2017-04-11 07:47] LABS: GLUCOMETER DEV NAME(LOC) 5N 2R; GLUCOSE,POINT OF CARE 162 MG/DL (70-110)
[2017-04-11] MEDS: PANTOPRAZOLE SODIUM 40 MG/VIAL IVP SCH (08:38)
[2017-04-11] MEDS: HEPARIN SODIUM,PORCINE 5,000 UNITS/ML VIAL SQ SCH ×2 (08:38→20:40)
[2017-04-11] MEDS: CloNIDine HCL 0.1 MG TABLET PO SCH ×3 (09:00→20:41)
[2017-04-11] MEDS: DOCUSATE SODIUM 100 MG CAPSULE PO SCH ×2 (09:00→20:40)
[2017-04-11 10:58] VITALS: BP 157/98
[2017-04-11] MEDS ORDERED: POTASSIUM CHL 10 MEQ/WATER 50 ML IV ONE (11:30)
[2017-04-11] MEDS ORDERED: DIGOXIN 250 MCG/ML 2 ML AMP IVP ONE ×2 (12:15→16:30)
[2017-04-11 13:27] LABS: GLUCOMETER DEV NAME(LOC) 5N 1M; GLUCOSE,POINT OF CARE 141 MG/DL (70-110)
[2017-04-11 15:52] VITALS: BP 180/125
[2017-04-11] MEDS ORDERED: SODIUM CHLORIDE 0.9% 100 ML ONE (16:45)
[2017-04-11] MEDS: POTASSIUM CHL 10 MEQ/WATER 50 ML IV SCH ×2 (17:03→18:32)
[2017-04-11] MEDS: LISINOPRIL 10 MG TABLET PO SCH (17:23)
[2017-04-11] MEDS: AmLODIPine BESYLATE 10 MG TABLET PO SCH (17:23)
[2017-04-11] MEDS: METOPROLOL SUCCINATE 100 MG ER TABLET PO SCH (17:25)
[2017-04-11 18:00] VITALS: BP 168/118
[2017-04-11 20:07] LABS: GLUCOMETER DEV NAME(LOC) 5N 1M; GLUCOSE,POINT OF CARE 144 MG/DL (70-110)
[2017-04-11 20:21] VITALS: BP 152/94
[2017-04-12] VITALS (7 sets, daily range): BP systolic 149–169; BP diastolic 87–108
[2017-04-12 00:19] LABS: GLUCOMETER DEV NAME(LOC) 5N 2R; GLUCOSE,POINT OF CARE 104 MG/DL (70-110)
[2017-04-12] MEDS: DEXTROSE 5%-0.45% SODIUM CHL 1,000 ML IV SCH (03:33)
[2017-04-12] MEDS: LevETIRAcetam 500 MG in DEXTROSE 5%-WATER 100 ML IV SCH ×2 (03:33→16:31)
[2017-04-12] MEDS: HydrALAZINE HCL 20 MG/ML VIAL IVP PRN (05:01)
[2017-04-12] MEDS: LORazepam 2 MG/ML VIAL IVP PRN (06:10)
[2017-04-12] MEDS: CloNIDine HCL 0.1 MG TABLET PO PRN ×2 (06:31→16:31)
[2017-04-12] MEDS: DIGOXIN 250 MCG/ML 2 ML AMP IVP SCH (09:23)
[2017-04-12] MEDS: PANTOPRAZOLE SODIUM 40 MG/VIAL IVP SCH (09:23)
[2017-04-12] MEDS: CloNIDine HCL 0.2 MG TABLET PO SCH ×3 (09:24→20:49)
[2017-04-12] MEDS: LISINOPRIL 10 MG TABLET PO SCH (09:24)
[2017-04-12] MEDS: METOPROLOL SUCCINATE 100 MG ER TABLET PO SCH (09:24)
[2017-04-12] MEDS: AmLODIPine BESYLATE 10 MG TABLET PO SCH (09:24)
[2017-04-12] MEDS: HEPARIN SODIUM,PORCINE 5,000 UNITS/ML VIAL SQ SCH ×2 (09:24→20:43)
[2017-04-12] MEDS: DOCUSATE SODIUM 100 MG CAPSULE PO SCH ×2 (09:26→20:44)
[2017-04-12 14:22] LABS: GLUCOMETER DEV NAME(LOC) 5N 1M; GLUCOSE,POINT OF CARE 131 MG/DL (70-110)
[2017-04-12 16:19] LABS: CALCIUM, TOTAL 9.6 mg/dL (8.8-10.5); CREATININE 1.51 mg/dL (0.60-1.30); POTASSIUM 4.1 mmol/L (3.5-5.1)
[2017-04-12 16:24] LABS: ALBUMIN 2.9 g/dL (3.4-5.0); BILIRUBIN,TOTAL 0.9 mg/dL (0.1-1.0); TOTAL PROTEIN, SERUM 8.3 g/dL (6.4-8.2)
[2017-04-12 17:27] LABS: GLUCOMETER DEV NAME(LOC) 5N 2R; GLUCOSE,POINT OF CARE 134 MG/DL (70-110)
[2017-04-13] VITALS (8 sets, daily range): BP systolic 135–168; BP diastolic 79–112
[2017-04-13] MEDS: LevETIRAcetam 1,000 MG in DEXTROSE 5%-WATER 100 ML IV SCH ×2 (03:45→16:24)
[2017-04-13] MEDS: LORazepam 2 MG/ML VIAL IVP PRN (05:28)
[2017-04-13 07:56] LABS: BASOPHILS % (AUTO) 0.1 % (0.0-2.0); EOSINOPHILS % (AUTO) 0.8 % (1.0-6.0); HEMATOCRIT 46.5 % (41-53); LYMPHOCYTES % (AUTO) 8.5 % (22.0-44.0); MEAN CORPUSCULAR HEMOGLOBIN 27.3 pg (26.0-34.0); MEAN CORPUSCULAR HGB CONC 32.2 G/dL (31.0-37.0); MEAN CORPUSCULAR VOLUME 85 fL (80-100); MONOCYTES # (AUTO) 1.2 K/uL (0.1-1.0); MONOCYTES % (AUTO) 10.4 % (2.0-9.0); NEUTROPHILS # (AUTO) 9.3 K/uL (1.8-7.7); NEUTROPHILS % (AUTO) 80.2 % (40.0-70.0); PLATELET COUNT (AUTO) 206 K/uL (150-450); RED BLOOD CELL COUNT(AUTO) 5.48 MIL/uL (4.50-5.90); RED CELL DISTRIBUTION WIDTH 14.8 % (11.5-14.5)
[2017-04-13 08:27] LABS: ALBUMIN 2.6 g/dL (3.4-5.0); BILIRUBIN,TOTAL 0.6 mg/dL (0.1-1.0); CALCIUM, TOTAL 9.4 mg/dL (8.8-10.5); CREATININE 1.63 mg/dL (0.60-1.30); DIGOXIN 0.88 ng/mL (0.90-2.00); MAGNESIUM 1.8 mg/dL (1.80-2.40); POTASSIUM 3.8 mmol/L (3.5-5.1); TOTAL PROTEIN, SERUM 7.7 g/dL (6.4-8.2)
[2017-04-13] MEDS: CloNIDine HCL 0.2 MG TABLET PO SCH ×2 (08:28→16:24)
[2017-04-13] MEDS: LISINOPRIL 10 MG TABLET PO SCH (08:29)
[2017-04-13] MEDS: METOPROLOL SUCCINATE 50 MG ER TABLET PO SCH (08:29)
[2017-04-13] MEDS: HEPARIN SODIUM,PORCINE 5,000 UNITS/ML VIAL SQ SCH (08:32)
[2017-04-13] MEDS: DOCUSATE SODIUM 100 MG CAPSULE PO SCH (08:32)
[2017-04-13] MEDS: AmLODIPine BESYLATE 10 MG TABLET PO SCH (08:32)
[2017-04-13] MEDS: DIGOXIN 250 MCG/ML 2 ML AMP IVP SCH (08:33)
[2017-04-13] MEDS: PANTOPRAZOLE SODIUM 40 MG/VIAL IVP SCH (08:33)
[2017-04-13] MEDS: OXYGEN THERAPY IH SCH (08:41)
[2017-04-13] MEDS ORDERED: PHENYTOIN SODIUM 1,000 MG in SODIUM CHLORIDE 0.9% 150 ML IV ONE (13:00)
[2017-04-13] MEDS ORDERED: ALBUTEROL SULFATE 2.5 MG/0.5 ML NEB SOLUTION NEB PRN (14:15)
[2017-04-13] MEDS ORDERED: IPRATROPIUM BROMIDE 0.5 MG/2.5 ML NEB SOLUTION NEB PRN (14:30)
[2017-04-13] MEDS: PHENYTOIN 100 MG/4 ML SUSPENSION UDCUP PO SCH (16:24)
[2017-04-13 17:38] LABS: GLUCOMETER DEV NAME(LOC) 5N 1M; GLUCOSE,POINT OF CARE 138 MG/DL (70-110)
[2017-04-13 17:38] LABS: GLUCOMETER DEV NAME(LOC) 5N 1M; GLUCOSE,POINT OF CARE 136 MG/DL (70-110)
[2017-04-13 20:08] LABS: GLUCOMETER DEV NAME(LOC) 5N 2R; GLUCOSE,POINT OF CARE 118 MG/DL (70-110)
[2017-04-13 20:08] LABS: GLUCOMETER DEV NAME(LOC) 5N 2R; GLUCOSE,POINT OF CARE 133 MG/DL (70-110)
[2017-04-13 20:08] LABS: GLUCOMETER DEV NAME(LOC) 5N 2R; GLUCOSE,POINT OF CARE 117 MG/DL (70-110)
[2017-04-14] MEDS: OXYGEN THERAPY IH SCH ×3 (00:51→21:08)
[2017-04-14] MEDS: CloNIDine HCL 0.2 MG TABLET PO SCH ×4 (00:51→21:15)
[2017-04-14] MEDS: PHENYTOIN 100 MG/4 ML SUSPENSION UDCUP PO SCH (00:51)
[2017-04-14] MEDS: DOCUSATE SODIUM 100 MG CAPSULE PO SCH ×3 (00:52→21:09)
[2017-04-14] MEDS: HEPARIN SODIUM,PORCINE 5,000 UNITS/ML VIAL SQ SCH ×3 (00:52→21:11)
[2017-04-14] MEDS: LevETIRAcetam 1,000 MG in DEXTROSE 5%-WATER 100 ML IV SCH ×2 (04:51→15:54)
[2017-04-14 05:42] VITALS: BP 161/106
[2017-04-14 08:26] VITALS: BP 161/84
[2017-04-14] MEDS: AmLODIPine BESYLATE 10 MG TABLET PO SCH (09:00)
[2017-04-14] MEDS: METOPROLOL SUCCINATE 50 MG ER TABLET PO SCH (09:00)
[2017-04-14] MEDS: LISINOPRIL 10 MG TABLET PO SCH (09:00)
[2017-04-14] MEDS: PANTOPRAZOLE SODIUM 40 MG/VIAL IVP SCH (09:00)
[2017-04-14] MEDS: DIGOXIN 250 MCG/ML 2 ML AMP IVP SCH (09:00)
[2017-04-14] MEDS ORDERED: PHENYTOIN 100 MG/4 ML SUSPENSION UDCUP NG SCH (10:02)
[2017-04-14 11:27] VITALS: BP 191/103
[2017-04-14] MEDS: PHENYTOIN 100 MG/4 ML SUSPENSION UDCUP NG SCH ×3 (11:43→21:11)
[2017-04-14 14:10] LABS: BASOPHILS # (AUTO) 0.02 K/uL (0.00-0.20); BASOPHILS % (AUTO) 0.2 % (0.0-2.0); EOSINOPHILS # (AUTO) 0.25 K/uL (0.00-0.70); EOSINOPHILS % (AUTO) 2.31 % (1.0-6.0); HEMATOCRIT 45.3 % (41-53); HEMOGLOBIN 14.5 g/dL (13.5-17.5); LYMPHOCYTES # (AUTO) 0.9 K/uL (1.0-4.8); MEAN CORPUSCULAR HEMOGLOBIN 26.7 pg (26.0-34.0); MEAN CORPUSCULAR HGB CONC 31.9 G/dL (31.0-37.0); MEAN CORPUSCULAR VOLUME 84 fL (80-100); MONOCYTES # (AUTO) 1.1 K/uL (0.1-1.0); MONOCYTES % (AUTO) 9.8 % (2.0-9.0); NEUTROPHILS # (AUTO) 8.6 K/uL (1.8-7.7); NEUTROPHILS % (AUTO) 79.7 % (40.0-70.0); PLATELET COUNT (AUTO) 158 K/uL (150-450); RED BLOOD CELL COUNT(AUTO) 5.43 MIL/uL (4.50-5.90); RED CELL DISTRIBUTION WIDTH 15.5 % (11.5-14.5)
[2017-04-14 15:40] LABS: ALANINE AMINOTRANSFERASE 23 U/L (12-78); ALBUMIN 2.5 g/dL (3.4-5.0); ALKALINE PHOSPHATASE 110 U/L (46-116); ASPARTATE AMINOTRANSFERASE 33 U/L (15-37); BILIRUBIN,TOTAL 0.5 mg/dL (0.1-1.0); CALCIUM, TOTAL 9.8 mg/dL (8.8-10.5); CHLORIDE 102 mmol/L (98-107); CREATININE 1.33 mg/dL (0.60-1.30); GLOMERULAR FILTR. RATE CALC > 60 mL/min (>60); GLUCOSE,RANDOM 138 mg/dL (70-110); POTASSIUM 3.8 mmol/L (3.5-5.1); SODIUM SERUM 140 mmol/L (136-145); TOTAL PROTEIN, SERUM 7.6 g/dL (6.4-8.2); UREA NITROGEN, BLOOD 33 mg/dL (7-18)
[2017-04-14 15:54] LABS: ANION GAP 10 mmol/L (8-16); CARBON DIOXIDE 28 mmol/L (22-29)
[2017-04-14 19:56] VITALS: BP 127/78
[2017-04-14] MEDS: METOPROLOL SUCCINATE 100 MG ER TABLET PO SCH (21:09)
[2017-04-14 23:32] VITALS: BP 131/84
[2017-04-14 23:48] LABS: GLUCOMETER DEV NAME(LOC) 5N 1M; GLUCOSE,POINT OF CARE 112 MG/DL (70-110)
[2017-04-14 23:48] LABS: GLUCOMETER DEV NAME(LOC) 5N 1M; GLUCOSE,POINT OF CARE 137 MG/DL (70-110)
[2017-04-14 23:48] LABS: GLUCOMETER DEV NAME(LOC) 5N 1M; GLUCOSE,POINT OF CARE 112 MG/DL (70-110)
[2017-04-14 23:48] LABS: GLUCOMETER DEV NAME(LOC) 5N 1M; GLUCOSE,POINT OF CARE 128 MG/DL (70-110)
[2017-04-15] MEDS: LevETIRAcetam 1,000 MG in DEXTROSE 5%-WATER 100 ML IV SCH ×2 (04:51→16:39)
[2017-04-15 04:56] VITALS: BP 151/92
[2017-04-15 07:20] VITALS: BP 160/95
[2017-04-15 07:59] LABS: BASOPHILS # (AUTO) 0.04 K/uL (0.00-0.20); BASOPHILS % (AUTO) 0.4 % (0.0-2.0); EOSINOPHILS % (AUTO) 2.92 % (1.0-6.0); HEMATOCRIT 49.4 % (41-53); HEMOGLOBIN 15.5 g/dL (13.5-17.5); LYMPHOCYTES # (AUTO) 1.2 K/uL (1.0-4.8); LYMPHOCYTES % (AUTO) 11.8 % (22.0-44.0); MEAN CORPUSCULAR HEMOGLOBIN 26.8 pg (26.0-34.0); MEAN CORPUSCULAR HGB CONC 31.4 G/dL (31.0-37.0); MEAN CORPUSCULAR VOLUME 85 fL (80-100); NEUTROPHILS # (AUTO) 7.8 K/uL (1.8-7.7); NEUTROPHILS % (AUTO) 74.9 % (40.0-70.0); PLATELET COUNT (AUTO) 175 K/uL (150-450); RED BLOOD CELL COUNT(AUTO) 5.79 MIL/uL (4.50-5.90)
[2017-04-15 08:32] LABS: ALBUMIN 2.4 g/dL (3.4-5.0); BILIRUBIN,TOTAL 0.4 mg/dL (0.1-1.0); CALCIUM, TOTAL 9.7 mg/dL (8.8-10.5); CREATININE 1.46 mg/dL (0.60-1.30); DIGOXIN 0.84 ng/mL (0.90-2.00); TOTAL PROTEIN, SERUM 7.9 g/dL (6.4-8.2)
[2017-04-15] MEDS: AmLODIPine BESYLATE 10 MG TABLET PO SCH (08:46)
[2017-04-15] MEDS: LISINOPRIL 10 MG TABLET PO SCH (08:46)
[2017-04-15] MEDS: HEPARIN SODIUM,PORCINE 5,000 UNITS/ML VIAL SQ SCH ×2 (08:46→20:27)
[2017-04-15] MEDS: DOCUSATE SODIUM 100 MG CAPSULE PO SCH ×2 (08:47→20:27)
[2017-04-15] MEDS: PANTOPRAZOLE SODIUM 40 MG/VIAL IVP SCH (08:48)
[2017-04-15] MEDS: DIGOXIN 250 MCG/ML 2 ML AMP IVP SCH (08:49)
[2017-04-15] MEDS: CloNIDine HCL 0.2 MG TABLET PO SCH ×3 (08:53→20:27)
[2017-04-15] MEDS: METOPROLOL SUCCINATE 100 MG ER TABLET PO SCH (09:00)
[2017-04-15] MEDS: PHENYTOIN 100 MG/4 ML SUSPENSION UDCUP NG SCH ×3 (09:51→22:02)
[2017-04-15 15:59] VITALS: BP 145/88
[2017-04-15] MEDS: HydrALAZINE HCL 50 MG TABLET PO SCH ×2 (16:40→22:02)
[2017-04-15] MEDS: OXYGEN THERAPY IH SCH (20:00)
[2017-04-15 20:14] VITALS: BP 147/86
[2017-04-15 23:39] VITALS: BP 158/88
[2017-04-16 04:42] VITALS: BP 164/114
[2017-04-16] MEDS: HydrALAZINE HCL 20 MG/ML VIAL IVP PRN (05:10)
[2017-04-16] MEDS: LevETIRAcetam 1,000 MG in DEXTROSE 5%-WATER 100 ML IV SCH ×2 (05:10→15:58)
[2017-04-16] MEDS: INSULIN ASPART 100 UNITS/ML SQ PRN ×2 (05:57→14:09)
[2017-04-16 06:39] LABS: GLUCOMETER DEV NAME(LOC) 5N 1M; GLUCOSE,POINT OF CARE 154 MG/DL (70-110)
[2017-04-16 06:39] LABS: GLUCOMETER DEV NAME(LOC) 5N 1M; GLUCOSE,POINT OF CARE 128 MG/DL (70-110)
[2017-04-16 06:39] LABS: GLUCOMETER DEV NAME(LOC) 5N 1M; GLUCOSE,POINT OF CARE 92 MG/DL (70-110)
[2017-04-16 06:39] LABS: GLUCOMETER DEV NAME(LOC) 5N 1M; GLUCOSE,POINT OF CARE 134 MG/DL (70-110)
[2017-04-16 06:39] LABS: GLUCOMETER DEV NAME(LOC) 5N 2R; GLUCOSE,POINT OF CARE 211 MG/DL (70-110)
[2017-04-16 06:39] LABS: GLUCOMETER DEV NAME(LOC) 5N 2R; GLUCOSE,POINT OF CARE 161 MG/DL (70-110)
[2017-04-16 06:39] LABS: GLUCOMETER DEV NAME(LOC) 5N 1M; GLUCOSE,POINT OF CARE 122 MG/DL (70-110)
[2017-04-16 07:02] VITALS: BP 152/94
[2017-04-16 07:03] LABS: BASOPHILS # (AUTO) 0.05 K/uL (0.00-0.20); BASOPHILS % (AUTO) 0.4 % (0.0-2.0); EOSINOPHILS # (AUTO) 0.12 K/uL (0.00-0.70); EOSINOPHILS % (AUTO) 1.01 % (1.0-6.0); HEMATOCRIT 50.4 % (41-53); HEMOGLOBIN 15.9 g/dL (13.5-17.5); LYMPHOCYTES # (AUTO) 0.7 K/uL (1.0-4.8); LYMPHOCYTES % (AUTO) 6.1 % (22.0-44.0); MEAN CORPUSCULAR HEMOGLOBIN 26.9 pg (26.0-34.0); MEAN CORPUSCULAR HGB CONC 31.5 G/dL (31.0-37.0); MEAN CORPUSCULAR VOLUME 85 fL (80-100); MONOCYTES # (AUTO) 0.8 K/uL (0.1-1.0); MONOCYTES % (AUTO) 7.1 % (2.0-9.0); NEUTROPHILS # (AUTO) 9.8 K/uL (1.8-7.7); PLATELET COUNT (AUTO) 215 K/uL (150-450); RED BLOOD CELL COUNT(AUTO) 5.91 MIL/uL (4.50-5.90); RED CELL DISTRIBUTION WIDTH 14.9 % (11.5-14.5)
[2017-04-16 07:07] LABS: NEUTROPHILS % (AUTO) 85.4 % (40.0-70.0)
[2017-04-16 07:21] LABS: ALBUMIN 2.5 g/dL (3.4-5.0); BILIRUBIN,TOTAL 0.3 mg/dL (0.1-1.0); CALCIUM, TOTAL 9.9 mg/dL (8.8-10.5); CREATININE 1.47 mg/dL (0.60-1.30); POTASSIUM 4.6 mmol/L (3.5-5.1); TOTAL PROTEIN, SERUM 8.2 g/dL (6.4-8.2)
[2017-04-16] MEDS: PHENYTOIN 100 MG/4 ML SUSPENSION UDCUP NG SCH ×2 (08:10→15:57)
[2017-04-16] MEDS: OXYGEN THERAPY IH SCH (08:10)
[2017-04-16] MEDS: PANTOPRAZOLE SODIUM 40 MG/VIAL IVP SCH (08:10)
[2017-04-16] MEDS: CloNIDine HCL 0.2 MG TABLET PO SCH ×2 (08:10→15:57)
[2017-04-16] MEDS: DOCUSATE SODIUM 100 MG CAPSULE PO SCH (08:10)
[2017-04-16] MEDS: HydrALAZINE HCL 50 MG TABLET PO SCH ×2 (08:10→15:57)
[2017-04-16] MEDS: HEPARIN SODIUM,PORCINE 5,000 UNITS/ML VIAL SQ SCH (08:10)
[2017-04-16] MEDS ORDERED: LISINOPRIL 20 MG TABLET PO SCH (09:00)
[2017-04-16 11:16] VITALS: BP 149/77
[2017-04-16] MEDS: AmLODIPine BESYLATE 10 MG TABLET PO SCH (14:04)
[2017-04-16 15:42] VITALS: BP 165/87
[2017-04-17 17:53] LABS: GLUCOMETER DEV NAME(LOC) 5N 1M; GLUCOSE,POINT OF CARE 143 MG/DL (70-110)
== END 2017-04-16 17:15 | disposition short-term general hospital (02) | DRG 100 ==
LOC: EMS 12:28 → ICU 15:34 → 5N 04-07 18:55
PROVIDERS: ADMIT Internal Medicine; ATTEND Internal Medicine
PROC: 3E0234Z Introduction of Serum, Toxoid and Vaccine into Muscle, Percutaneous Approach (ICD-10-PCS; principal; 2017-04-07)
DX: G40.409 Other generalized epilepsy and epileptic syndromes, not intractable, without status epilepticus (principal); K72.00 Acute and subacute hepatic failure without coma; N17.9 Acute kidney failure, unspecified; I48.2 Chronic atrial fibrillation; E11.22 Type 2 diabetes mellitus with diabetic chronic kidney disease; E87.1 Hypo-osmolality and hyponatremia; I48.92 Unspecified atrial flutter; I13.0 Hypertensive heart and chronic kidney disease with heart failure and stage 1 through stage 4 chronic kidney disease, or unspecified chronic kidney disease; I50.9 Heart failure, unspecified; I65.29 Occlusion and stenosis of unspecified carotid artery; K74.60 Unspecified cirrhosis of liver; D64.9 Anemia, unspecified; E78.00 Pure hypercholesterolemia, unspecified; E78.5 Hyperlipidemia, unspecified; E87.6 Hypokalemia; I25.10 Atherosclerotic heart disease of native coronary artery without angina pectoris; N18.9 Chronic kidney disease, unspecified; Z59.0 Homelessness; Z82.49 Family history of ischemic heart disease and other diseases of the circulatory system; Z86.73 Personal history of transient ischemic attack (TIA), and cerebral infarction without residual deficits; Z95.1 Presence of aortocoronary bypass graft; Z95.2 Presence of prosthetic heart valve; Z79.82 Long term (current) use of aspirin; Z79.899 Other long term (current) drug therapy; Z23 Encounter for immunization
CPT/HCPCS: 43753; 51702; 70450; 70551; 74000; 82962; 83735; 84132; 87081; 93005; 93306; 95816; 96361; 96365; 96366; 96375; 96376; 99291; 99292; C9113; G0480; J0360; J0712; J1160; J1165; J1644; J2060; J2405; J3480; J3490; J7050; J7060